=== PATIENT | male | born 1985 | race Caucasian/White ===

== ENCOUNTER 2025-02-08 21:29 | Emergency (ER) | payer MEDICAID ==
[~2025-02-08] VITALS: Ht 188 cm; Wt 82.0 kg
[2025-02-08 21:49] VITALS: BP 101/59; TEMP 36.9; O2SAT 98
[2025-02-08 22:18] VITALS: PULSE 60; RESP 20; O2SAT 98
== END 2025-02-09 00:58 | disposition home or self-care (01) ==
LOC: ER 21:29
DX: S61.412A Laceration without foreign body of left hand, initial encounter (principal); Z98.890 Other specified postprocedural states; W26.0XXA Contact with knife, initial encounter; Y93.89 Activity, other specified; Y92.89 Other specified places as the place of occurrence of the external cause; Y99.8 Other external cause status
CPT/HCPCS: 12001; 73130; 99283